=== PATIENT | female | born 1990 | race African-American/Black ===

== ENCOUNTER 2021-05-01 09:00 | Outpatient (RCR) | payer MEDICAID, SELFPAY ==
--- NOTE | 2021-05-01 09:05 | BH.SGPN.GN ---
Behaviors/Verbalizations/Mental Status: [] Eye contact is good. Motor activity is appropriate. Appearance is casual. Speech is Appropriate. Mood is anxious. Affect is congruent. Thoughts are linear and logical. No evidence of psychosis. Reviewed daily check in sheet and no reports of suicidal ideations or intent. Client Response/Progress/Benefit: [] Pt was an active participant in group discussion on empathy vs sympathy. Attentive. This was pt's first day in IOP. She shared with the group that she entered [facility] to become stable. She reports erratic moods and unhealthy coping skills. Her mental health has impacted her ability to keep a consistent job which has effected all aspects of her life. Group was supportive and offered some advice/suggestions for her first day/week in the IOP which was beneficial to pt. No progress noted as this was her first day. Will continue in IOP to maintain safety, increase healthy coping, and prevent decompensation. Narrative Note: []
--- NOTE | 2021-05-01 10:10 | BH.SGPN.GN ---
Behaviors/Verbalizations/Mental Status: [] Eye contact is good. Motor activity is appropriate. Appearance is neat. Speech is Appropriate. Mood is anxious. Affect is congruent. Thoughts are linear and logical. No evidence of psychosis. Client Response/Progress/Benefit: [] Pt participated at times during group discussion. Attentive during psychoeducation. Shared thoughts and insights along with peers on myths that are commonly associated with self-care. Common myths that group identified included self-care is .... selfish, lazy, takes to much time, has to be fun, is a privilege, is expensive, and is self-indulgent. Group worked together to attempt to bust these common myths about self-care. Pt along with her peers were able to identify barriers to self care such as; feeling to busy, prior commitments, urge to put others first, lack of finances, and feeling as if they don't deserve self-care. Pt and group were also able to identify the benefits to self-care which included; clarity, decreased stress, more energy, stability, increased self-esteem, having a purpose or something to look forward too. Benefited from group by increasing awareness of the benefits to self-care and challenging common myths that hinder one from utilizing self-care. Will continue in IOP to maintain safety, stablize mood, and increase healthy coping skills. Narrative Note: []
--- NOTE | 2021-05-01 11:03 | BH.SGPN.GN ---
Behaviors/Verbalizations/Mental Status: [] Client alert and oriented, neat and casually dressed and groomed. Eye contact good. Motor activity appropriate. Speech within normal limits. Affect congruent, mood anxious and depressed. Thoughts linear, logical, no signs of hallucinations or delusions. Client Response/Progress/Benefit: [] Client new to IOP tx on this date. She did well to remain an engaged participant AEB client taking notes during discussion, providing input, and listening attentively to peers. Attentive in group discussion on the various areas of self-care, benefits, and activities to improve self-care in each area. Client completed worksheet in which client identified current self-care practices and what self-care activities client wants to start using. Client reported she is currently excelling in area of spiritual self-care. Expressed wanting work on improving social self-care, noting she often isolates herself from her supports. Client shared she wants to begin by starting small and challenging herself to respond to text messages when others reach out to her. Appeared to benefit from reflecting on the area of self-care client can improve and setting a small goal. Will continue IOP tx to increase mood stability, maintain safety, and prevent decompensation. Narrative Note: []
--- NOTE | 2021-05-01 14:16 | BH.COMM_ITS ---
Communication Note - Communication with Client Communication Note: Met with pt to complete initial paperwork. Only significant change since pre-admission screening is that she reports experiencing fleeting thoughts of overdosing on allergy medication Tuesday; however, reports this was momentary and that she was able to control the thoughts. Pt notes her sister has all medications and client feels able to maintain safety at this time. Denies any suicidal ideation since Tuesday, denies any current plan or intent. Reports her children as protective factors. Has been taking Latuda and lithium for past week and a half. Completed [place] [facility] with moderate risk. Future-oriented.
--- NOTE | 2021-05-04 08:57 | BH.SGPN.GN ---
Behaviors/Verbalizations/Mental Status: []Eye contact is good. Motor activity is appropriate. Appearance is neat, grooming well tended to. Speech is Appropriate. Mood is depressed, anxious, irritable. Affect is congruent. Thoughts are linear and logical. No evidence of psychosis. Reviewed daily check in sheet and client reports of suicidal ideations as a 4/5 which is increased from reported scores last week. Reports intent as a 2/5. Client will meet with a therapist individually for further assessment of risk. Client Response/Progress/Benefit: [] Pt was an attentive participant AEB actively listening, providing supportive feedback, as well as willingness to process with group. Client reports emotion for the day as ?conflicted? and indicates this is related to minimal changes in her mental health status. Reports that she has been going out of her way to practice self-care such as hanging out with supports and not isolating, caring for her body through exercise and getting her nails done, as well as spent time painting. Identified these as mental health wins, but went on to indicate struggling to see significant improvements in her overall mood and noted feeling as though she is putting effort into using healthy skills with little to no success. Notes this as frustrating and discouraging. Receptive of supportive feedback provided by group and indicates understanding that improving her overall mental health is a process but shared struggling to remain patient in doing so. Benefited from group support, encouragement, and feedback. Will continue in IOP to maintain safety, further promote healthy coping behaviors, and prevent decompensation. Narrative Note: []
--- NOTE | 2021-05-04 10:10 | BH.SGPN.GN ---
Behaviors/Verbalizations/Mental Status: [] Eye contact is good. Motor activity is appropriate. Appearance is neat. Speech is Appropriate. Mood is anxious. Affect is congruent. Thoughts are linear and logical. No evidence of psychosis. Client Response/Progress/Benefit: [] Pt was an active participant in group discussion and activity. Attentive during psychoeducation. Participated and provided insight along with peers on obstacles or potholes that hinder our ability to communicate in stressful situations. Group identified the following obstacles; impulsivity (reacting to fast to comments and situations), mental health struggles, physical health struggles (headaches, pain, poor sleep), toxic or unhealthy relationship patterns, work/responsibilities (feeling overwhelmed), lack of proper self-care on our part, and negative thinking patterns (mind-reading, catastrophizing). Pt provided insight on how emotion and mood can impact effective communication. Pt struggles at times with communicating her needs effectively in the experiential activity and was visibly stressed. Benefited from increased awareness on how our emotions impact our communication. Will continue in IOP to maintain safety, increase healthy coping skills, prevent decompensation. Narrative Note: []
--- NOTE | 2021-05-04 11:10 | BH.SGPN.GN ---
Behaviors/Verbalizations/Mental Status: []Client alert and oriented, casually dressed and groomed. Eye contact good. Motor activity appropriate. Speech within normal limits. Affect constricted, mood depressed. Thoughts linear, logical, no signs of hallucinations or delusions. Client Response/Progress/Benefit: []Client engaged in session AEB client listening attentively to peers and providing input. Attentive during psychoeducation on 4 zones of regulation. Client able to identify feelings and behaviors for each zone. Client identified coping skills one can use to support self in each zone which included: opposite action, exercise, journaling, reaching out to support, and grounding skills. Client stated belief that she is in ?a mixed state? this morning of ?blue, green, and yellow.? Client shared she has been struggling with mood instability over the past few weeks. Client stated she plans to take a nap and banquet prep cook tonight to improve mood. Benefited from increased education on zones of regulation or stages of alertness for emotions and healthy coping skills to use for each zone. Will continue IOP tx to prevent decompensation, maintain safety, and improve functioning. Narrative Note: []
--- NOTE | 2021-05-04 14:03 | BH.MDN ---
Multi-Disciplinary Note - Note 30-min Individual Time Started:: 12:10 Date: 05/04/21 Purpose of session/treatment goals addressed:: The purpose of this session was to gather information on client's current stressors, symptoms, and treatment goals. Another goal was to build rapport assess risk. Eye Contact:: Good Motor Activity:: Appropriate Appearance:: Neat Speech:: Appropriate Mood:: Dysthymic Affect:: Congruent - tearful Thoughts:: Linear, Logical, No evidence of hallucinations/delusions noted Staff Interventions:: Therapist used active listening and open-ended questions to explore client's current stressors, symptoms, history, and treatment goals. Therapist used strengths perspective to build rapport and combat distorted thought patterns. Therapist explored client's daily symptom tracker scores and assessed risk. Client Response:: Client responded well to session, open to meeting with therapist. Client reports enjoying group so far, but she is also frustrated. Client shared feeling frustrated because I have a lot of skills and I try really hard, but I'm not better. Client was recently diagnosed with Bipolar Disorder and client shared she is still trying to figure out what the diagnosis means. Client became tearful while sharing her worries about how her mental health will impact her children. Client also tearful about how her mental health has impacted client's ability to form healthy relationships and keep jobs. Client receptive to emotional support from therapist and gentle thought challenging. Client receptive to learning more about her diagnosis and tracking her moods. Client shared one barrier she often runs into is not giving things a far chance. Client stated she will often put a lot of effort into her mental health when she is feeling more energetic and positive, but then when depression hits client gives up on it. Client reports wanting to overcome this and was receptive to [facility] staff helping to hold client accountable. Client endorses some fleeting suicidal ideations today, but denies any plan or intent. Client admits to having more Benadryl at home that was recently given to client by a doctor and client texted her sister to remove it. Client's sister has all of client's other medications and checks-in with client daily. Client will attend [facility] tx tomorrow. Risks/Concerns:: Client reports having fleeting thoughts about suicide not because I want to kill myself, but because I just want a break. Client reports ability to maintain safety today and denies any plan or intent. Client's sister has client's medications and client will give sister her allergy medication today as well. Client's children are her protective factor and client is future oriented. Progress Toward Goals/Plan:: Client's second day of IOP tx. Client reports she enjoys the topics so far and looks forward to meeting with the psychiatrist. Client shared she has been experiencing erratic moods over the past few weeks. Client has poor sleep, fleeting suicidal ideations, mood cycling, and irritability. Client recently diagnosed with Bipolar disorder and client shared she is still trying to figure out what this means. Client's goals are to reinforce healthy coping skills, find medications that work, increase awareness of mood and symptoms, and follow through with goals. Client will continue IOP tx to prevent further decompensation, manage medications, and maintain safety. Time Stopped:: 12:30
--- NOTE | 2021-05-05 09:00 | BH.SGPN.GN ---
Behaviors/Verbalizations/Mental Status: [] Eye contact is good. Motor activity is appropriate. Appearance is neat. Speech is Appropriate. Mood is depressed. Affect is flat. Thoughts are linear and logical. No evidence of psychosis. Reviewed daily check in sheet and pt reports 3/5 for suicidal thoughts and 2/5 for intent. This is reduced from yesterday and close to baseline for patient. Client Response/Progress/Benefit: [] Pt participated when prompted. Attentive. Daily symptom tracker notes 4/5 for depression (improved from yesterday) and 4/5 for irritability. Emotion for today is not bad but not good. Mental health wins included making dinner yesterday. States that this was big win as she hasn't done this in awhile. Accomplishing more tasks. More motivated. Short check-in today. Progress noted per pt report. Benefited from group support, encouragement, and feedback. Will continue in IOP to maintain safety, increase healthy coping, and prevent decompensation. Narrative Note: []
--- NOTE | 2021-05-05 10:08 | BH.SGPN.GN ---
Behaviors/Verbalizations/Mental Status: []Client alert and oriented, neatly dressed and groomed. Eye contact good. Motor activity appropriate. Speech within normal limits. Affect flat, mood dysthymic. Thoughts linear, logical, no signs of hallucinations or delusions. Client Response/Progress/Benefit: []Client responded well to session, attentive and taking notes. Group discussed potential barriers to communication including: yelling, shutting down, passive-aggressive behaviors, and mind-reading. Helped group identified positives of having effective communication skills. Attentive during psychoeducation on the four communication styles. Client chose not to share her communication style with the group, but client was taking notes. Seemed to benefit from increased awareness of the different communication styles and identify personal communication style. Client to continue in IOP tx to prevent decompensation, manage medications, and maintain safety. Narrative Note: []
--- NOTE | 2021-05-05 11:08 | BH.SGPN.GN ---
Behaviors/Verbalizations/Mental Status: []Client alert and oriented, casually dressed and appropriately groomed. Eye contact poor. Motor activity appropriate. Speech WNL. Affect constricted, mood depressed and anxious. Thoughts linear, logical, no signs of hallucinations or delusions. Client Response/Progress/Benefit: []Client responded well to session AEB client listening attentively to others and providing input during group discussion on the pay offs and costs of the different communication styles. Attentive during psychoeducation on interpersonal DBT skill TEZ and client selected a communication skill to practice. Client chose not to share what skill she wants to work on. Progress could be hindered if client continues to stay passive in group discussions. Will continue IOP tx to stabilize moods, increase healthy coping skills and prevent decompensation.
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
--- NOTE | 2021-05-06 10:36 | BH.COMM_ITS ---
Communication Note - Communication with Client Communication Note: Discussed liquid [place] with Dr. Tobar. Called [facility] pharmacy and discussed medication. Pharmacist states no dose of liquid [place] is available at their pharmacy. Discussed this with Dr. Tobar. New order received from Dr. Tobar for client to continue taking the [place] capsules the way she currently is (300mg in the AM, 600mg in the PM) and to start to wean her Latuda. Client is to take 1/2 tablet of [place] daily for one week, and then stop medication. New order recieved for Saphris 5mg SL twice daily for client. Client is to get her labs done as previously ordered by Dr. Tobar. This nurse called client at this time to rely information about medication changes, weaning Latuda, order for Saphris and to continue [place]. Client voices understanding.
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
--- NOTE | 2021-05-06 13:29 | BH.DR.ITP ---
Initial Treatment Plan Patient Information Visit Information: ADMISSION DATE: EXPECTED LOS: 4-6 weeks Problems/Symptoms Problem #1:: Mood instability Symptom:: Sadness, irritability, anger, hopelessness, worthlessness, anhedonia, sleep disruption, decreased concentration, racing thoughts, suicidal ideation, impulsivity, history of reckless behavior
--- NOTE | 2021-05-06 15:33 | BH.MTP_ITS ---
Master Treatment Plan - Patient Information Program Physician:: Dr. Caridad Ga Primary Therapist:: Violeta LEE - Psychiatric Diagnoses Psychiatric Diagnoses:: Bipolar 1 disorder, most recent episode mixed, severe without psychosis F 31.63; History of PTSD; History of alcohol use disorder (sober since February 2021); Cluster B traits: Strong Diagnosis Code(s):: F 31.63 - Estimated LOS Estimated LOS (in weeks):: 6 Problem/Goal #1 - Problem/Goal #1 Stated Goal:: Client will increase mood stability, reduce depression, and reduce suicidal thoughts due to Bipolar disorder through the Intensive Outpatient Program. Description of Barriers: Client reports history of lack of follow through and shared I don't always give things a fair chance. Client is a single mother of three children, so she does not get a lot of self-care time. Client endorses poor distress tolerance skills and struggles with regulating her emotions which leads to suicidal ideations and impulsive behaviors. Functional Impact: Client is a 31 year-old female with a history of bipolar disorder and PTSD. Client was self-referred to [facility] due to erratic moods over the past several months. Client currently endorses a depressed mood, but client shares her moods change many times throughout the day. Client's last manic episode was last year which included client being hypersexual, drinking, and impulsively spending money. Client currently endorses lack of energy, increased irritability, insomnia, hopelessness, and worthlessness. Client reports chronic suicidal ideations, but denies any active SI. Client's symptoms continues to interfere with her functioning as well as her ability to form relationships and work. Client also fears that her symptoms are impacting her children. Goal Relevant Strengths/Supports: Client is intelligent and has knowledge of many different coping skills. Client is connecting with outpatient counseling and psychiatry. Client's sister is her primary support. - Objectives Objective #1 Stated Objective: Client will learn and utilize 2-3 healthy coping strategies to better manage depressive and mood symptoms as shown by reduced DSM-5 scores. Interventions: Through group and individual sessions, therapist will help client identify triggers and warning signs of depression and emotional dysregulation including emotional, physical, and behavioral changes. Therapist will teach client various coping skills to manage her symptoms and give client tangible resources to use to regulate emotions. Therapist will use cognitive restructuring techniques and help client gain awareness of negative thoughts that reinforce depressive cycles. Therapist will help client incorporate behavioral activation and assist client in setting SMART goals. Discharge Criteria: Client will have met this goal when she can report learning and using at least 2 coping skills to manage depressive symptoms and show a reduction in DSM-5 symptoms. Target Date: 06/12/21 Review Date: 05/29/21 Status: open Objective #2 Stated Objective: Client will identify at least 2-3 negative self-talk messages used to reinforce depression and replace thoughts with positive, realistic messages. Interventions: Therapist will help client identify distorted, negative beliefs about self and replace with more realistic, affirmative messages. Therapist will use CBT and DBT to help client increase insight to the connection between thoughts, emotions, and behaviors. Therapist will encourage client to practice thought challenging and self-compassion. Discharge Criteria: Client will have achieved this goal when can verbalize at least 2 negative self-talk messages and effectively replace those thoughts with affirmative messages. Target Date: 06/12/21 Review Date: 05/29/21 Status: open Problem/Goal #2 - Problem/Goal #2 Stated Goal:: Client will reduce irritability symptoms and impulsivity to improve daily functioning. Description of Barriers: Client reports history of lack of follow through and shared I don't always give things a fair chance. Client is a single mother of three children, so she does not get a lot of self-care time. Client endorses poor distress tolerance skills and struggles with regulating her emotions which leads to suicidal ideations and impulsive behaviors. Functional Impact: Client is a 31 year-old female with a history of bipolar disorder and PTSD. Client was self-referred to [facility] due to erratic moods over the past several months. Client currently endorses a depressed mood, but client shares her moods change many times throughout the day. Client's last manic episode was last year which included client being hypersexual, drinking, and impulsively spending money. Client currently endorses lack of energy, increased irritability, insomnia, hopelessness, and worthlessness. Client reports chronic suicidal ideations, but denies any active SI. Client's symptoms continues to interfere with her functioning as well as her ability to form relationships and work. Client also fears that her symptoms are impacting her children. Goal Relevant Strengths/Supports: Client is intelligent and has knowledge of many different coping skills. Client is connecting with outpatient counseling and psychiatry. Client's sister is her primary support. - Objectives Objective #1 Stated Objective: Client will identify 2-3 irritability triggers and 2 coping skills to use when feeling irritable to manage anger as shown by decreasing her DSM-5 scores for irritability and anger. Interventions: Therapist will provide education on bipolar disorder and maintenance cycles. Therapist will help client explore personal symptoms and warning signs of bipolar disorder. Therapist will teach client coping skills to improve emotional regulation, mindfulness, and distress tolerance to help client cope with mood changes in the moment. Discharge Criteria: Client will have accomplished this goal when she can identify at least 2 triggers and report using 2 coping skills to manage anger and irritability. Additionally, client will have accomplished this goal when her DSM-5 scores show a reducion for anger. Target Date: 06/12/21 Review Date: 05/29/21 Status: open Objective #2 Stated Objective: Client will be able to report daily medication compliance with in IOP tx. Interventions: Therapist will help client explore the pros and cons of taking medications to improve her mood symptoms. Therapist will advocate for client to reduce medication barriers and provide encouragement when needed. Discharge Criteria: Client will have accomplished this goal when she can report daily medication compliance for the next 4-6 weeks. Target Date: 06/12/21 Review Date: 05/29/21 Status: open
--- NOTE | 2021-05-07 08:55 | BH.SGPN.GN ---
Behaviors/Verbalizations/Mental Status: []Eye contact is avoidant. Motor activity is appropriate. Appearance is neat. Speech is Appropriate, limited input. Mood is depressed and agitated. Affect is constricted. Thoughts are linear and logical. No evidence of psychosis. Reviewed daily check in sheet and client reports suicidal ideations as 5/5 with intent as 4/5. Willing to meet individually for a more complete risk assessment and to complete safety planning. Client Response/Progress/Benefit: []Pt was an attentive participant AEB actively listening as well as nodding while fellow participants shared with the group. Client did not provide any input throughout and declined to process with the group. Appeared to be agitated and often avoiding eye contact throughout discussion. Client agreeable to meeting with individual therapist to discuss and process stressors impacting mood stability and ability to engage. Narrative Note: []
--- NOTE | 2021-05-07 11:10 | BH.SGPN.GN ---
Behaviors/Verbalizations/Mental Status: []Client alert and oriented, casually dressed and groomed. Eye contact fair. Motor activity appropriate. Speech within normal limits. Affect congruent. Mood anxious. Thoughts linear, logical, no signs of hallucinations or delusions. Client Response/Progress/Benefit: []Client engaged during activity and provided ideas on how to cope with internal barriers that keep clients stuck from moving towards goals. Client able to identify barriers to desired reality. Identified barriers to current reality to include: fear, worthlessness, shame, guilt, and anger. Client stated she wants to practice skill of opposite action to help overcome her barriers. Benefited from group by identifying obstacles and solutions to desired reality. Will continue IOP tx to prevent decompensation, stabilize moods and increase healthy coping skills. Narrative Note: []
--- NOTE | 2021-05-07 15:54 | BH.COMM ---
Communication Note - Communication with Client Communication Note: Called client's emergency contact to share client's current emotional state, SI, and safety plan made during session. Will call emergency contact later this afternoon to follow up on client.
--- NOTE | 2021-05-07 15:55 | BH.COMM ---
Communication Note - Communication with Client Communication Note: Spoke with client's emergency contact (sister). Sister reports client is doing better this afternoon. Sister went to client's house and spent time with client. Client is not a risk to herself or others at this time. Client denies any active suicidal ideations, plan, or intent.
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
--- NOTE | 2021-05-08 13:29 | BH.COMM ---
Communication Note - Communication with Client Communication Note: Spoke with client and got verbal consent to schedule an intake appointment for client at [facility]. Client wants to begin parenting classes at [facility] and has an intake on 05/21/21.
--- NOTE | 2021-05-28 09:00 | BH.SGPN.GN ---
Behaviors/Verbalizations/Mental Status: [] Eye contact is good. Motor activity is appropriate. Appearance is casual. Speech is Appropriate. Mood is depressed. Affect is flat. Thoughts are linear and logical. Reviewed daily check in sheet and pt reports 1/5 for suicidal ideations and 1/5 for intent. This is baseline for patient. Client Response/Progress/Benefit: [] Pt spoke only when prompted. Attentive. Emotion for today is tired. Daily symptom tracker notes 3/5 for depression and anger. Pt shared that she did not attend IOP yesterday due to her children's bus not showing up on time. This led to her having to transport her children to school. Reports that she was irritable all day due to this inconvenience. Notes poor sleep and feeling tired this AM. Also reports motivation being low. Able to identify some mental health wins. No progress noted per pt report. Benefited from group support and encouragement. Will continue in IOP to maintain safety, prevent decompensation, and to increase healthy coping skills. Narrative Note: []
== END 2021-05-09 23:59 ==
LOC: BHIOP 09:00
PROVIDERS: Referring Provider Psychiatry & Neurology Psychiatry; Visit Provider Psychiatry & Neurology Psychiatry
DX: F31.63 Bipolar disorder, current episode mixed, severe, without psychotic features (principal); F43.10 Post-traumatic stress disorder, unspecified; R45.851 Suicidal ideations; Z79.899 Other long term (current) drug therapy; Z91.5 Personal history of self-harm; I10 Essential (primary) hypertension; Z81.8 Family history of other mental and behavioral disorders; Z81.3 Family history of other psychoactive substance abuse and dependence
CPT/HCPCS: 90792; H2012; H2020; S9480; 90832; 90837

== ENCOUNTER 2021-05-11 07:50 | Outpatient (RCR) | payer MEDICAID, SELFPAY ==
--- NOTE | 2021-05-11 09:00 | BH.SGPN.GN ---
Behaviors/Verbalizations/Mental Status: [] Eye contact is good. Motor activity is appropriate. Appearance is neat and casual. Speech is Appropriate. Mood is depressed and agitated. Affect is congruent. Thoughts are linear and logical. No evidence of psychosis. Reviewed daily check in sheet and client reports suicidal ideations as a 3 and intent as 2 which is consistent with baseline, denies any immediate plan, or intent. Will meet with individual counselor for further assessment. Client Response/Progress/Benefit: []Pt was an attentive participant AEB actively listening, as well as willingness to process with group. Client reports emotion for the day as ?hopeless? noting this is due to struggling with medication side effects which has been an ongoing issue. Expressed wanting to stop taking her medications today as a result but is willing to continue to take them as prescribed until she can meet with program psychiatrist this Tuesday. Reports she is also struggling with only seeing the negatives despite knowing she has some positives in her life. Identified finances as an additional stressor. Pt responded well to supportive feedback and encouragement provided by the group. Able to identify current mental health wins which included attending anabaptism which she noted is a positive support, as well as spending time with her children and painting despite not feeling the motivation to do much. Benefited from group support, encouragement, and feedback. Will continue in IOP to further improve mood stability, continue to promote healthy coping behaviors, maintain safety and prevent decompensation. Narrative Note: []
--- NOTE | 2021-05-11 10:05 | BH.SGPN.GN ---
Behaviors/Verbalizations/Mental Status: []Client alert and oriented, neatly dressed and groomed. Eye contact good. Motor activity WNL. Speech within normal limits. Affect congruent, mood depressed. Thoughts linear, logical, no signs of hallucinations or delusions. Client Response/Progress/Benefit: []Client responded well to session, attentive and taking notes as well as engaged throughout discussion and activity. Agreed with session quote and shared connecting with client?s examples of how fear of failure can negatively impact mental health. The group discussed how mindset and one?s reaction to setbacks determines progress. Client shared past disappointments and fear of vulnerability has reinforced fear of failure in the past. Client appeared to benefit from gaining awareness of the impact fear of failure can have on one?s mental health and wellbeing. Progress noted as client continues to improve engagement in group setting, gain insight and coping skills which have improved overall ability to manage emotions and reports reduction in suicidal ideations as a result. Continues to struggle with significant depression and will continue IOP to reduce symptoms, combat distortions, promote healthy emotion regulation, and improve daily functioning. Narrative Note: []
--- NOTE | 2021-05-11 11:10 | BH.SGPN.GN ---
Behaviors/Verbalizations/Mental Status: []Client alert and oriented, neatly dressed and groomed. Eye contact good. Motor activity appropriate. Speech within normal limits. Affect constricted, mood depressed. Thoughts linear, logical, no signs of hallucinations or delusions. Client Response/Progress/Benefit: []Client responded well to session, engaged during activity and discussion. Client completed the fear of failure worksheet and reported that fear of failure has kept client from networking, going to school, making friends, and relationships. Client able to identify thoughts and behaviors that reinforce personal fear of failure which included: isolation, negative self-talk, self-sabotage, anger, and fear of rejection. Client attentive during discussion of the different strategies to help overcome fear of failure. Identified wanting to work on creating a gratitude journal to overcome fear of failure. Appeared to benefit from identifying strategies with peers. Will continue IOP tx to prevent decompensation, improve emotional regulation skills, and monitor medication changes. Narrative Note: []
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
--- NOTE | 2021-05-13 09:02 | BH.SGPN.GN ---
Behaviors/Verbalizations/Mental Status: []Client alert and oriented, casually dressed and groomed. Eye contact fair to good. Motor activity appropriate. Speech within normal limits. Affect constricted, mood dysthymic. Thoughts linear, logical, no signs of hallucinations or delusions. Reviewed client?s symptom tracker and risk for suicidal ideation noted as a 2/5, denies plan, or ntent as of 05/13/21. This is lower than prior baseline. 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 Client reports feeling chill this morning, but client also feels somewhat concerned about this as she has several stressors she feels should be impacting her more. Noted concerns about medication contributing to her feeling calmer and is under if she is overmedicated or if this is what a healthy baseline looks like. Discussed struggling to know her warning signs and triggers as she is new to learning about her bipolar diagnosis. Peers offered encouragement and strategies to help with increasing personal awareness. Client was also encouraged to review the handout she has on common warning signs/triggers for mood cycling. Client's positives today included getting to IOP despite having car troubles and continuing to take medications despite frustration with them. Progress noted in reduced SI, but client continues to struggle with low insight to triggers and applying emotion regulation skills consistently. Will continue IOP tx to prevent decompensation, maintain safety, and improve overall functioning. Narrative Note: []
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
[2021-05-13 10:58] VITALS: BP 137/88; PULSE 76
--- NOTE | 2021-05-13 11:15 | BH.SGPN.GN ---
Behaviors/Verbalizations/Mental Status: []Client alert and oriented, neatly dressed and appropriately groomed. Eye contact good. Motor activity appropriate. Speech within normal limits. Affect constricted, mood agitated. Thoughts linear, logical, no signs of hallucinations or delusions. Client Response/Progress/Benefit: []Client responded well to session, taking notes and participating in worksheet discussion. Client set a goal to gain control over reducing irritability and anger. Client wants to be able to work on this by using her R.E.S.T technique that is hanging up on her fridge. Client stated to help accomplish this goal client will seek support from her therapist and sister as well as her DBT skills workbook. Appeared to benefit from identifying a small goal to benefit mental health. Progress noted in client?s self-report of an improved mood today. Will continue IOP tx to monitor medication changes, increase emotional regulation skills, and increase distress tolerance. Narrative Note: []
--- NOTE | 2021-05-13 12:13 | PCM.BH.PN ---
Progress Note Progress Note: History of Present Illness/Interim History: The patient is a -[place] female with a history of bipolar 1 disorder 31-year-old who is seen in follow-up at the [facility] behavioral health IOP program. I last saw the patient 1 week ago for her initial visit. At that time the patient wished to take all of her medicine in liquid form. Attempt was made to do this but the liquid lithium carbonate was not available at any pharmacies. The patient states that the lithium 1200 mg total daily which she opens the Sprinkles and Yogurt Is Making Her Feel Fatigued and Causing Her to Have Increased Nighttime Urination Which She Is Not Willing to Put up with. She Is Unable to Take an Extended Release [place] Because She Has To Pour out the Capsules. States That She Is Not Going to Stay on [place] Due To the Side Effects. The Patient Has Been Tolerating Her Asenapine 5 Mg Sublingual Twice a Day Only by Taking All of It at Bedtime. The Patient States That When She Was Taking the Asenapine Too Tired during the Day. On Her Own She Started Taking It 10 Mg Twice a Day Sublingual at Bedtime and Feels That This Is Working for Her. Her Sleep Is Improved to 8 Hours a Night and She Feels That Her Mood Has Also She Had Some Suicidal Ideation Last Week Improved in the Last Few Days. Which She Feels Was Triggered by Her Slapping Her 3-year-old for Getting on Her Nerves. Her and Her Counselor Called Child Protective Services and Spoke with Them and They [place] That the Children Were Not in Harm's Way. The Patient Has Not Had Any Suicidal Ideation in the Last Few Days and Feels She Is Managing Her Anger Better but Is Looking Forward to Taking a Parenting Class. The Patient Denies Any Hopelessness or Worthlessness or Guilt in the past Few Days. No Thoughts of Self-Harm. She Is Still Stressed by Having Problems with Her Car but Feels She Is Learning Good Skills in the Program. She Also Denies Plan for Suicide, Active Suicidal Ideation, Homicidal Ideation, Hallucinations or Delusions. She Feels That the Saphris Is Benefiting Her Mood and She Has Also Not Been Napping during the Day. Meds: Latuda Was Discontinued Yesterday after Weaning It. Asenapine 10 Mg Sublingual Nightly (X4 Days Now); [place] Carbonate 600 Mg P.O. Twice a Day by Sprinkling the Capsule in Yogurt. : [] Mental status exam: The patient is a 31-year-old -[place] female who appears normal for stated age and is well groomed with good hygiene. She has no psychomotor agitation or retardation. Eye contact is good and speech is normal rate and rhythm and fluent with no pressure. Mood is mildly depressed. Thought process is organiz Thought content:ed and goal-directed. Affect is full and normal. There remains evidence of suicidal ideation last week but for the past few days there is no evidence of suicidal ideation. There is no evidence of a plan for suicide, homicidal ideation, hallucinations, delusions or symptoms of bryan. Reality testing is intact. Judgment is intact. Insight is fair. Impulsivity is moderate to high. Diagnose 1. Bipolar 1 disorder, most recent episode mixed, severe without psychosis ; History of PTSD, alcohol use disorder.; Strong cluster B traits; primary support, work and financial issues. The patient will continue the IOP program at [facility] as the structure, support, educati, and group therapy She felt safe during the interview and if it anytime she does not feel safe she will let us know or go to the emergency room. will hopefully prevent worsening of the patient's symptoms which might require hospitalization. The risks, options, possible complications and side effects of the medications were discussed with the patient and she understands and accepts these. The patient agrees to stay on the lithium at least until she has taken the asenapine for 2 weeks. She insists that she will not stay on the lithium due to side effects. at the current dose She agrees to continue the lithium for 10 days. Then she will decrease the lithium to just the morning dose and then discontinue that in 1 week (May 30, 2021). She agrees to stay on the asenapine 10 mg sublingual nightly as she is unable to tolerate taking it twice a day. The patient understands that we are quite restricted in terms of medication since she refuses to take anything that is not a liquid or sublingual. She understands that there is a risk of bryan if she stops the medication on her own or does not wean it. She understands that she may have to go back on some type of mood stabilizer if asenapine alone does not control her moods over the next few months. She will continue to follow-up with outpatient providers and I will see the patient in follow-up in 1 week.o Plan: [] Laboratory: Th normal and the lithium level was therapeutic at 0 pointe patient's labs were discussed with her and the renal panel0.7 mmol/L. Her vitamin D was in the normal range and her TSH was normal also.
--- NOTE | 2021-05-14 09:00 | BH.SGPN.GN ---
Behaviors/Verbalizations/Mental Status: []Eye contact is good. Motor activity is appropriate. Appearance is neat. Speech is Appropriate. Mood is calm. Affect is flat. Thoughts are linear and logical. No evidence of psychosis. Reviewed daily check in sheet and pt reports 2/5 for suicidal thoughts and 1/5 for intent which is below pt's baseline. Client Response/Progress/Benefit: []Client responded well to session, receptive to feedback from peers. Client reports feeling chill this morning which is both welcomed and making client concerned. Client stated I'm not this chill of a person, so it's confusing. Client received support from peers helping client challenge jumping to conclusions and encouraging client to be aware of potential warning signs. Client shared she has been practicing giving myself katia as well as spending time with her daughter doing a craft. Client reports medication compliance. Client's biggest stressors right now are money and car issues. Appeared to benefit from feedback from peers and encouragement. Progress noted in client's reduced SI compared to earlier this week. Will continue IOP tx to prevent decompensation, improve overall functioning, and monitor mood. Narrative Note: []
--- NOTE | 2021-05-14 10:00 | BH.SGPN.GN ---
Behaviors/Verbalizations/Mental Status: [] Eye contact is good. Motor activity is appropriate. Appearance is casual. Speech is Appropriate. Mood is depressed. Affect is flat. Thoughts are linear and logical. No evidence of psychosis. Client Response/Progress/Benefit: [] Pt was an active participant in group discussion. Attentive during psychoeducation on the impact of anxiety, benefits of anxiety, and the different anxiety disorders. Pt asked questions and was engaged during discussion on types of anxiety disorders (OCD, PTSD, Panic D/O, Agoraphobia, INDIO, Acute Stress Disorder, and Phobias). Group worked together to identify a list of common signs of anxiety which included; feeling tense, shakiness, sweating, tight chest, upset stomach, feeling flush, SOB, increased heart rate, headache, numbness, etc). Group was primarily psychoeducational in nature and pt was attentive, engaged, and provided insight at times. Benefited from increased awareness of different types of anxiety disorders as well as benefits and importance of identifying physiological signs of anxiety. Will continue in IOP to maintain safety, stabilize mood, and increase healthy coing skills. Narrative Note: []
--- NOTE | 2021-05-14 11:05 | BH.SGPN.GN ---
Behaviors/Verbalizations/Mental Status: []Client alert and oriented, casually dressed and groomed. Eye contact fair. Motor activity appropriate. Speech within normal limits. Affect constricted, mood dysthymic. Thoughts linear, logical, no signs of hallucinations or delusions. Client Response/Progress/Benefit: []Client was a passive participant AEB limited contributions during discussion, however did listen attentively to peers. Reviewed safety behaviors she engages in that reinforce anxiety. Attentive during psychoeducation on mindfulness coping skills and their impact on mental health wellness. Worked with group to identify healthy coping strategies to manage anxious symptoms. Client stated she is willing to practice yoga and getting a massage. Appeared to benefit from learning healthy skills to help manage anxiety. Pt to continue IOP to stabilize moods, increase healthy coping and prevent decompensation. Narrative Note: []
--- NOTE | 2021-05-19 11:05 | BH.SGPN.GN ---
Behaviors/Verbalizations/Mental Status: []Eye contact is good. Alert and oriented. Motor activity is appropriate. Appearance is casual. grooming is appropriate. Speech is Appropriate. Mood is dysthymic. Affect is constricted. Thoughts are linear and logical. No evidence of psychosis or hallucinations. Client Response/Progress/Benefit: []Client was engaged during discussion, did well to complete activity and process with the group. Client was willing to complete the worksheet in which she was challenged to develop a personal SMART goal. Client chose the goal to reach out weekly to a support person and spend quality time with kids on daily basis. Client identified her barriers which included: don't feel like it and no motivation. Client receptive to identifying solutions for these barriers and willing to begin working on this goal. Benefited from this group by developing a short-term SMART goal related to mental health. Will continue IOP tx to stabilize moods, increase consistent application of skills and prevent decompensation. Narrative Note: []
--- NOTE | 2021-05-20 09:00 | BH.SGPN.GN ---
Behaviors/Verbalizations/Mental Status: []Client alert and oriented, neatly dressed and groomed. Eye contact fair. Motor activity appropriate. Speech within normal limits. Affect constricted, mood irritable. Thoughts linear, logical, no signs of hallucinations or delusions. Reviewed client?s symptom tracker, client's scores for suicidal ideation were below her baseline. No risk for suicide as of 05/20/21 Client Response/Progress/Benefit: []Client responded mostly well to session, quiet unless sharing. Client reports feeling in between happy and sad this morning. Client shared she has stopped taking her medications and shared I'm just over trying meds and the side effects. Client self-reports on her symptom tracker that her mood has been overall the same and so has her functioning. Client also scored herself moderate (3/5) for irritability and depression. Therapist will meet with client later to discuss medication. Client stated she used opposite action this weekend and went on a mindfulness walk. Benefitted from discussion on utilizing healthy coping skills to manage mood symptoms. Will continue IOP tx to prevent decompensation and monitor mood. Narrative Note: []
--- NOTE | 2021-05-20 11:05 | BH.SGPN.GN ---
Behaviors/Verbalizations/Mental Status: []Eye contact is fair. Alert and oriented. Motor activity is appropriate. Appearance is casual. grooming is appropriate. Speech is Appropriate. Mood is anxious. Affect is constricted. Thoughts are linear and logical. No evidence of psychosis or hallucinations. Client Response/Progress/Benefit: []Client was engaged during discussion, did well to complete activity and process with the group. Client was willing to complete the worksheet in which was challenged to develop a personal SMART goal. Client was able to create a short term goal that was mental health focused and would help her with consistent use of skills. Client worked on identifying potential barriers that could prevent her from accomplishing identified goal. Accepted feedback and support from others when identifying potential solutions to the barriers. Benefited from this group by developing a short-term SMART goal related to mental health. Will continue IOP tx to increase use of healthy coping skills, increase confidence and prevent decompensation.
--- NOTE | 2021-05-20 11:46 | BH.COMM ---
Communication Note - Communication with Client Communication Note: Client reports that she has stopped taking her medications two days ago and wishes to not continue with medication trials in the future. Client declined to see IOP psychiatrist today. Client denies any suicidal or homicidal ideations, plan, or intent today and does not appear as an imminent threat to herself or others. Therapist provided education on the risks/concerns of decompensation and mood instability that may result off of medications. Therapist will inform IOP staff in the treatment team meeting today.
--- NOTE | 2021-05-20 11:51 | BH.MDN_ITS ---
Multi-Disciplinary Note - Note 60-min Individual Time Started:: 10:25 Date: 05/20/21 Purpose of session/treatment goals addressed:: To address goal #2 objective #2 as well as goal #1 objective #1 of client's tx plan. Eye Contact:: Good Motor Activity:: Appropriate Appearance:: Neat Speech:: Appropriate Mood:: Other - agitated Affect:: Constricted Thoughts:: Other - poor insight, No evidence of hallucinations/delusions noted Staff Interventions:: Therapist explored client's reasoning for quitting her medications. Therapist offered support while also helping client see the potential consequences of stopping and the benefits client had been experiencing on the medication. Therapist used an exercise from the bipolar workbook and assisted client in identifying what would make depression and bryan worse. Therapist also helped client identify what client can do to avoid unhealthy skills or activities that make symptoms worse. Therapist discussed the importance of sleep hygiene, stress management, avoiding caffeine, and diet and exercise. Therapist gave client a habit tracker Client Response:: Client open to meeting with therapist and discussing the risks and concerns of stopping medication. Client acknowledges that her mood and sleep improved on Asenapine and that her suicidal ideations decreased. However, client stated she does not plan to continue taking Asenapine due to fear of weight gain and feeling too tired when exercising. Client also acknowledges the potential consequences of discontinuing her medication, but client reports belief that she will be able to control her bipolar symptoms using a holistic approach. Client also wants to find a holistic psychiatrist to help treat her bipolar symptoms. Discussed things client can control such as diet, exercise, stress management skills, sleep hygiene, and avoiding substances. Client learned about caffeine impacts bryan and was willing to reduce caffeine intake. Client and therapist identified things that make bryan and depression worse. Also created strategies to avoid these things and cope in the moment. Client created a plan to cope with isolation, negative self-talk, impulsivity with spending, and diet. Client has an intake tomorrow at [facility] to start parenting classes. Risks/Concerns:: Client denies any suicidal or homicidal ideations, plan, or intent as of 05/20/21. Client is future oriented and stated she has not been suicidal for days. Client has decided to stop taking her medications and there is a risk of decompensation, mood instability, and increased impulsivity and irritability without her medications. All these concerns with discussed with client and she understands and accepts these. Progress Toward Goals/Plan:: Client had been making progress towards treatment goals, however, client recently stopped her Asenapine due to fear of weight gain. Client acknowledges that stopping this medication could result in bryan, worsening mood symptoms, sleep issues, and suicidal ideations. Client stated she wants to focus more on a holistic approach to manage her bipolar symptoms. Client agreeable to reduce caffeine intake, use calming coping skills, and maintain a sleep routine. Will continue IOP tx to monitor mood and prevent decompensation. Time Stopped:: 11:20
--- NOTE | 2021-05-21 09:00 | BH.SGPN.GN ---
Behaviors/Verbalizations/Mental Status: []Pt eye contact fair, neatly dressed, motor activity appropriate, speech normal rate and tone, mood anxious, constricted affect, thoughts linear and intact, no evidence of delusions or hallucinations. Reviewed client?s symptom tracker, pt indicates a 2/5, with 5 being severe for suicidal ideation and a 1/5 suicidal intention. This is pt's baseline. Pt does not seem to be at imminent risk to harm self or others. future focused. Client Response/Progress/Benefit: Pt responded well to session AEB pt listening attentively to others and sharing thoughts and feelings. Pt continues to report moderate depressed and agitation symptoms. Continues to report mild anxious symptoms. Pt reports she purchased supplements yesterday because she is going to try a holistic approach to managing her mental health. Pt states she is over taking medications because can't deal with the side effects. Pt admits she has hx of not following through with things she starts to do. Pt identified feeling worried she won't stick with the holistic approach. Pt unable to see the potential consequences of getting off her mood stabilizer. Pt to continue IOP to improve mood stability, increase consistent use of healthy coping and prevent decompensation. Narrative Note: []
--- NOTE | 2021-05-21 10:15 | BH.SGPN.GN ---
Behaviors/Verbalizations/Mental Status: []Client alert and oriented, casually dressed and groomed. Eye contact good. Motor activity appropriate. Speech within normal limits. Affect constricted, mood dysthymic. Thoughts linear, logical, no signs of hallucinations or delusions. Client Response/Progress/Benefit: []Pt was an engaged though primarily passive participant, declined to provide input during discussion though nodding throughout, taking notes, and was attentive during psychoeducation. Attentive during short activity about automatic thoughts, indicated relating to how automatic thoughts can influence beliefs, self-talk, and relationships with others. Group was primarily educational; therapist introduced and gave examples of the 10 cognitive distortions. Benefited from education and increased awareness of cognitive distortions and role that they play in negative thoughts and emotions. Pt reported connecting with the following distortions: all or nothing thinking, jumping to conclusions, mental filter, disqualifying the positives, and personalization. Shared that distortions have kept her from believing treatment will work in the past and resulted in assumptions which negatively impacted ability to trust others in the past. Will continue IOP tx to prevent decompensation, increase mood stability, and continue to promote healthy change behaviors. Narrative Note: []
--- NOTE | 2021-05-21 11:05 | BH.SGPN.GN ---
Addendum entered and electronically signed by Violeta Cottrell 05/28/21 13:40: error in date. correct date is 05/28/21 Original Note: Behaviors/Verbalizations/Mental Status: []Client alert and oriented, neatly dressed and groomed. Eye contact good. Motor activity appropriate. Speech within normal limits. Affect constricted, mood irritable. Thoughts linear, logical, no signs of hallucinations or delusions. Client Response/Progress/Benefit: []Client responded well to session, actively listening and providing examples. Group discussed the different categories of coping skills which included distraction, emotional release, grounding, self-love, and thought challenging. Client participated in creating a coping skills ?menu? from the five categories of coping skills. Client's coping skill menu included: spending time with kids, journaling, yoga, praying, and asking herself if her negative thoughts are ?100% true 100% of the time.? Progress noted in client?s reduced DSM-5 scores since admission, however, client continues to decline medication and is reporting worsening sleep. Appeared to benefit from increasing repertoire of healthy coping skills. Will continue tx to monitor mood and sleep, prevent decompensation, and increase use of healthy coping skills Narrative Note: []
--- NOTE | 2021-05-22 09:00 | BH.SGPN.GN ---
Behaviors/Verbalizations/Mental Status: [] Eye contact is good. Motor activity is appropriate. Appearance is neat. Speech is Appropriate. Mood is Depressed/irritable. Affect is flat. Thoughts are linear and logical. No evidence of psychosis. Reviewed daily check in sheet and pt reports 2/5 for suicidal thoughts and 1/5 for risk which is pt's baseline. Client Response/Progress/Benefit: [] Pt only participated when prompted. Attentive during group discussion on positive psychology however did not provide thoughts. Emotion for today is troubled but staying in the present. Symptom tracker notes 3/5 for depression and agitation. Mental health wins reported to be cleaning the house which she reports is significant for her. Reports feeling more motivated to make the best decisions for herself and her children. She attended her chldren's meet and great with their teachers yesterday. Also has begun a parenting class at [facility]. I want to be more present in their lives Also reports desire to learn better skills to parent her children noting she learned not so great things from her parents while she was growing up. Overall progress noted per pt report. These is concern for patient as she did stop all her medications against psychiatrist's recommendation. Unclear if increased motivation is hypomania. Will continue in IOP to monitor mood, encourage medication, increase healthy coping skills, and to prevent decompensation. Narrative Note: []
--- NOTE | 2021-05-22 10:03 | BH.SGPN.GN ---
Behaviors/Verbalizations/Mental Status: []Client alert and oriented, neatly dressed and groomed. Eye contact good. Motor activity appropriate. Speech within normal limits. Affect flat, mood euthymic. Thoughts linear, logical, no signs of hallucinations or delusions. Client Response/Progress/Benefit: []Client engaged in session AEB taking notes and contributing to discussion. Client shared connecting with the importance of setting boundaries, however, client stated she struggles with boundaries. Client stated ?I don?t set boundaries I just cut people off? which leads to loneliness and isolation. Client assisted group with identifying benefits of setting boundaries such as improved relationships, reduced anxiety, and increased self-esteem. Listened during psychoeducation on different types of boundaries. Client seemed to benefit from increased awareness of how boundaries impact mental health and the different types of boundaries there are. Progress noted in client?s report of reaching out to supports outside of IOP. Will continue IOP tx to prevent decompensation, monitor mood, and improve functioning. Narrative Note: []
--- NOTE | 2021-05-22 11:12 | BH.SGPN.GN ---
Behaviors/Verbalizations/Mental Status: []Client alert and oriented, neat and casually dressed and appropriately groomed. Eye contact good. Motor activity appropriate. Speech within normal limits. Affect congruent, mood dysthymic, anxious. Thoughts linear and intact. no signs of delusions or hallucinations. Client Response/Progress/Benefit: [] Client responded well to session AEB listening attentively to peers and providing input throughout. Client completed the boundary self-assessment activity and processed within their small group. Client was attentive and contributed during psychoeducation on the different boundary styles. Client stated struggling with having really rigid boundaries which has negatively impacted relationships and made it hard for her to trust others or open up in the past. Participated in group discussion brainstorming various strategies for improving healthy personal boundaries. Client identified wanting to improve her willingness to be vulnerable with her healthy supports. Shared this may help her to be more receptive of help and willing to trust others in the long run. Will continue IOP tx to continue to maintain safety, improve mood stability, and prevent decompensation. Narrative Note: []
--- NOTE | 2021-05-26 11:12 | BH.COMM ---
Communication Note - Communication with Client Communication Note: Client no called/no showed for IOP today. Therapist spoke with client's sister and her sister reports client is okay. Sister shared client's children started school today and there was an issue with the school bus which prevented client from attending. Sister reports she saw client over the weekend and client appeared to be doing well. Client denied any suicidal or homicidal ideations, plan, or intent last time she attended IOP. Client is scheduled to attend IOP again on 05/28/21.
--- NOTE | 2021-05-28 10:05 | BH.SGPN.GN ---
Behaviors/Verbalizations/Mental Status: []Client alert and oriented, neatly dressed and groomed. Eye contact good. Motor activity appropriate. Speech within normal limits. Affect constricted, mood irritable. Thoughts linear, logical, no signs of hallucinations or delusions. Client Response/Progress/Benefit: [] Pt was an active participant in group discussion and activity. Attentive during discussion of what coping skills are and how people learn coping skills. Pt worked with peers to identify why people use unhealthy coping skills such as it is easier, habit, and short-term relief. Worked within small group to complete challenge activity requiring use of several coping skills. Did well to provide and receive supportive feedback. Group processed the activity and connected it back to having a strong base of internal and external healthy coping skills. Benefited from increased awareness of coping skills, benefits in using healthy coping skills, and common coping skill barriers. Will continue in IOP to improve mood stability, improve daily functioning, and reduce irritability. Narrative Note: []
--- NOTE | 2021-05-29 09:00 | BH.SGPN.GN ---
Behaviors/Verbalizations/Mental Status: [] Eye contact is good. Motor activity is appropriate. Appearance is casual. Speech is Appropriate. Mood is depressed. Affect is flat. Thoughts are linear and logical. No evidence of psychosis. Reviewed daily check in sheet and pt reports 1/5 for suicidal thoughts and 1/5 for intent which are baseline for pt. Client Response/Progress/Benefit: [] Pt spoke only when prompted. Attentive however did not provided any feedback. Emotion for today is over it. Daily symptom tracker notes 3/5 for depression and anger. Mental health wins include utilizing opposite action skills. Stressors include an initial visit with her editor managing director which she reports was not beneficial. Pt reports that the GENERAL FARM HAND had made some suggestions regarding medications however pt is not going to follow-through with these recommendations. Pt felt the [employer] was too young and believes that she knows more about medications than her. She shared some other psychosocial stressors regarding her children and thier return back to school. SHe struggles to identify any skills to utilize for anger other than opposite action and exercise. No progress noted. Benefited from group support and feedback. Will continue in IOP to maintain safety, increase healthy coping, and to stabilize mood. Narrative Note: []
--- NOTE | 2021-05-29 10:10 | BH.SGPN.GN ---
Behaviors/Verbalizations/Mental Status: []Client alert and oriented, neatly dressed and groomed. Eye contact good. Motor activity appropriate. Speech within normal limits. Affect constricted, mood stressed. Thoughts linear, logical, no signs of hallucinations or delusions. Client Response/Progress/Benefit: []Client responded well to session, attentive and participating in discussion. Participated in discussion of things that can keep people feeling trapped or stuck in life including; avoidance, self-doubt, unhealthy coping skills, and fear of failure. Group discussed the connection between thoughts, emotions, and behaviors as well as how negative thinking can keep a person stuck. Client attentive during psychoeducation on maintenance cycles. Client able to identify negative thoughts that have kept client stuck which included ?I?m never going to get better, why am I like this, and I?m a failure.? Appeared to benefit from gaining awareness of how negative thoughts reinforce mental health symptoms and keep people stuck. Will continue IOP tx to monitor mood symptoms, prevent decompensation, and increase the use of healthy coping skills. Narrative Note: []
--- NOTE | 2021-05-29 13:15 | BH.MDN ---
Multi-Disciplinary Note - Note 45-min Individual Time Started:: 11:30 Date: 05/29/21 Purpose of session/treatment goals addressed:: To address current stressors and explore recent BPD diagnosis. Another goal was to provide psychoeducation on BPD and discuss plan of care moving forward. Eye Contact:: Good Motor Activity:: Appropriate Appearance:: Neat Speech:: Appropriate Mood:: Euthymic, Anxious Affect:: Congruent Thoughts:: Linear, Logical, No evidence of hallucinations/delusions noted Staff Interventions:: motivational interviewing, psychoeducation on: - Borderline personality disorder, strengths perspective, reviewed DSM-5, other - Administered self-assessment. Client Response:: Client responded well to session, open to meeting with therapist. Client met with her new regional vice president surgical sales yesterday and client stated she was diagnosed with borderline personality disorder. Client shared I truly feel like I have that and not bipolar disorder. Discussed the differences between bipolar disorder and BPD. Client also completed the self-assessment from the borderline personality disorder workbook. Client feels she has seven out of the nine criteria for BPD including: frantic efforts to avoid real or imagined abandonment, unstable and intense interpersonal relationships, impulsivity in at least two areas of life, recurrent suicidal behavior, gestures, or threats, affective instability, chronic feelings of emptiness, and inappropriate and difficulty managing anger. Client feels that a BPD diagnosis will actually be helpful as client does not respond well to medication. Client also has plans to participate in a DBT IOP after discharging from [facility] IOP. Discussed the importance of self-awareness and application of coping skills to manage BPD symptoms. Therapist also helped client gain insight that client's symptoms of bipolar disorder should not be overlooked. Risks/Concerns:: Client denies any suicidal ideations, plan, or intent as of 05/29/21. Client denies any homicidal ideations. Client recently prescribed Abilify by her outpatient regional vice president surgical sales and per client's report, she does not plan to take it. Progress Toward Goals/Plan:: Client's DSM-5 scores for depression, SI, and irritability have all decreased since admission. Depression by 25%, SI by 67%, and irritability by 25%. Client's scores for bryan have not changed since admission. Client has been off her medication for approximately a week and reports minimal change to her mood. Client does report her sleep is poor since being off of Saphris. Client wants to focus on treating her BPD symptoms moving forward. Will continue IOP tx to prevent decompensation, improve emotional regulation skills, and increase use of healthy coping skills. Time Stopped:: 12:10
--- NOTE | 2021-06-01 09:00 | BH.SGPN.GN ---
Behaviors/Verbalizations/Mental Status: [] Eye contact is good. Motor activity is appropriate. Appearance is neat. Speech is Appropriate. Mood is euthymic. Affect is full. Thoughts are linear and logical. No evidence of psychosis. Reviewed daily check in sheet and pt reports 1/5 for suicidal thoughts and 1/5 for intent. Client Response/Progress/Benefit: [] Pt spoke when promoted. Attentive. Daily symptom tracker notes 4/5 for depression and agitation. Mental health win reported as spending time with her daughter for her b-day. She states that they went to [employer] which was fun. Stress related to her son beginning to struggle at school. States I feel depression coming on. She describes this as being out of her control. Group suggested some possible skills to utilize however pt appeared dismissive. Limited progress noted. Benefited from group support and encouragement. Will continue in IOP to maintain safety, encourage use of skills, and to prevent decompensation. Narrative Note: []
--- NOTE | 2021-06-01 10:10 | BH.SGPN.GN ---
Behaviors/Verbalizations/Mental Status: []Client alert and oriented, casually dressed and groomed. Eye contact poor. Motor activity appropriate. Speech within normal limits. Affect flat, mood depressed. Thoughts linear, logical, no signs of hallucinations or delusions. Client Response/Progress/Benefit: []Client passive participant AEB client providing no input throughout discussion, however did appear to listen attentively to others. Listened as the group brainstormed the positive and negative aspects of stress on physical and mental health. Group did well to identify the benefits of stress as well as the impact of distress on performance and mental health. Client chose not to share current stressors. Client seemed to benefit from increased self-awareness of current stressors and impact stress has on mental health. Recommended to continue IOP tx to improve emotion regulation, promote use of healthy coping skills and prevent decompensation.
--- NOTE | 2021-06-01 11:15 | BH.SGPN.GN ---
Behaviors/Verbalizations/Mental Status: []Client alert and oriented, neat and casually dressed and groomed. Eye contact fair to good. Motor activity appropriate. Speech within normal limits. Affect constricted, mood anxious and dysthymic. Thoughts linear, logical, no signs of hallucinations or delusions. Client Response/Progress/Benefit: []Client engaged in session AEB listening attentively to others and taking notes throughout discussions. Client was an active participant in challenge activity and did well to use healthy communication and emotion regulation skills in the moment to help group with problem solving while in high stress situations. Took on a more active role as a result. Client remained attentive during discussion about the 4 A's of managing stress and nodded in connection with the various benefits of each. Shared wanting to work on the skill of altering to better cope with how her son is behaving in the school environment. Client stated this will be helpful to decrease stress because she would feel more capable of addressing stressor rather than continuing to be stressed by the reports of him misbehaving. Client seemed to benefit from increased awareness of the impact of stress on mental health and increasing repertoire of stress management strategies. Will continue IOP tx to prevent decompensation, continue to promote thought challenging and mood stability, as well as consistent application of healthy coping skills. Narrative Note: []
--- NOTE | 2021-06-01 15:04 | BH.TPR ---
Treatment Plan Review Date of Admission:: 05/01/21 Date of Treatment Plan Review:: 05/29/21 Admitting Diagnoses:: Bipolar 1 disorder, most recent episode mixed, severe without psychosis F 31.63; History of PTSD; History of alcohol use disorder (sober since February 2021); Cluster B traits: Strong Current Diagnoses:: Bipolar 1 disorder, most recent episode mixed, severe without psychosis F 31.63; Borderline Personality Disorder; History of PTSD; History of alcohol use disorder (sober since February 2021); Patient's Response to Treatment:: Client?s attendance is mostly consistent, but client has had two no shows since starting IOP. Client appears to take notes during group sessions and she contributes during process group, but client is quiet during the other two groups. Client is inconsistent with homework when the homework is a worksheet, but client has been using opposite action. Client is not currently taking medication. Client does well with calling and scheduling appointments as well as advocating for herself. Status of Current Problems and Symptoms: Client's DSM-5 symptoms have decreased since admission, but client continues to report issues with sleep, limited functioning, and irritability. Client reports her new resident surgeon diagnosed her with borderline personality disorder and client feels this is a more appropriate diagnosis. Client identifies with the following symptoms: frantic efforts to avoid real or imagined abandonment, unstable and intense interpersonal relationships, impulsivity in at least two areas of life, recurrent suicidal behavior, gestures, or threats, affective instability, chronic feelings of emptiness, and inappropriate and difficulty managing anger. Client's children recently started school which was a stressor earlier this week. Client also continues to report financial stress and stress that comes with being a single parent. Client has been off medication for two weeks, but does not report any symptoms of bryan. Problem #1 Problem Name:: Mood instability, depression, and suicidal ideations Status of Goals:: Objective 1- complete with ongoing work encouraged. Client?s DSM-5 scores for suicidal ideation have decreased by 67% since admission, depression by 25%, and her symptoms of bryan remain the same since admission. Client has learned about opposite action, thought challenging, and dialectical thinking. Objective 2- partially complete. Client can identify distorted thought patterns and does well during session to challenge these thoughts. However, client struggles to challenge these thoughts outside of IOP. Team Recommendations:: Treatment team recommends client increase her verbal contributions during group session. Also encourages client to continue using opposite action, reaching out to supports, exercising, and attending [employer]. Problem #2 Problem Name:: Irritability and Impulsivity Status of Goals:: Objective 1- complete with ongoing work encouraged. Client?s DSM-5 scores for irritability decreased by 25%. Client has gained awareness of healthy coping skills such as deep breathing, self-talk, R.E.S.T, and self-care. Objective 2- not complete. Client is not taking medication currently, but client reports she is still ?open-minded? to medication. Client has been encouraged several times by IOP staff and client?s outpatient providers to take medication, but client declines. Team Recommendations:: Treatment team encourages client to develop a structured routine to help client and her children better regulate emotions. Client has also been encouraged to consider medication to manage mood symptoms. Additionally, client plans to begin parenting classes and would like to start a DBT IOP following IOP discharge.
--- NOTE | 2021-06-03 09:05 | BH.SGPN.GN ---
Behaviors/Verbalizations/Mental Status: [] Pt eye contact good, neat dressed, motor activity appropriate, speech normal rate and tone, mood euthymic, congruent affect, thoughts linear and intact, no evidence of delusions or hallucinations. Reviewed client?s symptom tracker pt indicated a 1/5 for suicidal ideation, with 5 being severe, and a 1/5 for suicidal intention. This is below's pt's baseline for suicidal ideation and intention. Does not appear to be at imminent risk to harm self or others. Client Response/Progress/Benefit: []Pt responded well to session AEB by listening to others and sharing thoughts and feelings. Pt stated she is stressed because she is noticing herself having no energy, not motivated and easily annoyed. Pt reported she is recognizing she is going into a depressed episode. Pt stated the symptoms started last week but she was in denial. Pt reported additional stressor as getting phone calls from the school everyday about her son's behavior. Pt stated she doesn't know what to do to help him be better in school. Pt identified mental health positive as continuing to use opposite action to make herself get things done everyday. Progress noted with pt having awareness that she is going into a depressive episode. Pt progress could be hindered by pt's belief she needs to do this on my own and stopping all her medications a couple weeks ago. Pt to continue IOP to stabilize moods, continue use of healthy coping and prevent decompensation. Narrative Note: []
--- NOTE | 2021-06-03 10:16 | BH.SGPN.GN ---
Behaviors/Verbalizations/Mental Status: []Client alert and oriented, neat and casually dressed and groomed. Eye contact fair to good. Motor activity appropriate. Speech within normal limits. Affect constricted, mood depressed. Thoughts linear, logical, no signs of hallucinations or delusions. Client Response/Progress/Benefit: []Pt was an active participant AEB taking notes and remaining attentive throughout group discussion, as well as completed anger worksheet. Group worked together to define anger and discussed the ways anger can impact one internally and externally. Pt reported that an individual?s anger expression can be a learned behavior and current reactions be influenced by how they have reacted in past experiences. Pt completed the iceberg exercise and identified emotions that tend to ?live under the surface? of her own anger include: disappointment, loss of control, feeling attacked, loneliness/isolation, and hopelessness. Pt also gained awareness of her typical responses to anger which included: shutting down, yelling, or starting arguments. Benefited from group by increasing understanding of the impact of anger on mental health. Recommended continued tx to continue to improve emotion regulation skills, prevent decompensation, and continue to work on improving distress tolerance skills. Narrative Note: []
--- NOTE | 2021-06-03 11:20 | BH.SGPN.GN ---
Behaviors/Verbalizations/Mental Status: []Client alert and oriented, neatly dressed and groomed. Eye contact fair. Motor activity appropriate. Speech within normal limits. Affect constricted, mood dysthymic and irritable. Thoughts linear, logical, no signs of hallucinations or delusions. Client Response/Progress/Benefit: []Pt was engaged throughout AEB participating in discussion and taking notes. Pt appeared irritable during the activity, but did well to use healthy coping skills in the moment as she responded well to feedback. Contributed as group brainstormed healthy coping skills for better managing anger which included: deep breathing, counting, exercise, DDD, and taking walks. Pt also gained awareness of costs of unmanaged anger. Pt appeared to benefit from identifying different techniques to manage anger as well as gaining awareness of the costs of anger. Pt has been working on walking away and taking breaks when angry. Pt will continue to practice mindfulness skills to manage irritability. Will continue IOP tx to increase emotional regulation skills, prevent decompensation, and increase self-awareness. Narrative Note: []
--- NOTE | 2021-06-03 14:58 | BH.MDN ---
Multi-Disciplinary Note - Note 30-min Individual Time Started:: 12:10 Date: 06/03/21 Purpose of session/treatment goals addressed:: To address goal #2 of client's tx plan and to review progress/barriers. Another goal was to discuss aftercare plan. Eye Contact:: Good Motor Activity:: Appropriate Appearance:: Neat Speech:: Soft Mood:: Dysthymic Affect:: Constricted Thoughts:: Linear, Logical, No evidence of hallucinations/delusions noted Staff Interventions:: thought challenging, motivational interviewing, psychoeducation on: - Bipolar disorder and BPD, discharge planning, reviewed DSM-5, taught coping skills - Willingness vs. Willfulness Client Response:: Client responded well to session, open to meeting with therapist. Client stated she did not want to come to IOP today as she has been experiencing lack of motivation and increased irritability. Client stated she used opposite action this morning and has been trying to sit with her emotions during group rather than leaving and isolating. Client self-reports that she is managing her irritability better at home as client has not lashed out at her children. Client stated she has been telling herself I know these skills I need to use them. Client receptive to learning about willingness vs. willfulness. Client and therapist discussed client's symptoms of BPD and Bipolar disorder. Client reflected since last session and she feels that she has more symptoms of bipolar disorder than she wanted to admit. Client responded well to motivational interviewing and discussion of medication. Client connected with confirmation bias and how this could prevent client from trying medication in the future. Client willing to practice DBT skills for homework. Risks/Concerns:: Client's daily symptom tracker for suicidal ideations is 1/5 with 5 being severe. Client reports this is below her baseline and continues to deny any active suicidal ideations, plan, or intent. No HI. Future oriented. Progress Toward Goals/Plan:: Client's DSM-5 scores have decreased since admission and her suicidal ideations have significantly decreased. Client currently reporting increased depressive symptoms such as lack of motivation and energy, however, client reports she is still able to function at home. Client is still off medication, but is considering starting Abilify again. Pt plans to continue IOP tx for two more weeks to strengthen coping skills and monitor mood and then will start a DBT IOP and parenting classes. Time Stopped:: 12:40
--- NOTE | 2021-06-05 13:39 | BH.DS_ITS ---
Discharge Summary - Demographics Date of Admission:: 05/01/21 Discharge Date: 06/05/21 Presenting Problems at Admission:: Client is a 31 year-old female with a history of bipolar disorder, cluster B traits, and PTSD. Client was self-referred to [facility] due to erratic moods over the past several months. At admission, client endorsed a depressed mood, but client shares her moods change many times throughout the day. Client's last manic episode was last year, during which client was being hypersexual, drinking, and impulsively spending money. At admission, client endorsed lack of energy, increased irritability, insomnia, hopelessness, and worthlessness. Client reported chronic suicidal ideations, but denied any active SI. Client's symptoms were interfering with her functioning at home as well as her ability to form relationships and work. Client also feared that her symptoms were impacting her children. Discharge Diagnoses:: Bipolar 1 disorder, most recent episode mixed, severe without psychosis F 31.63; Borderline Personality Disorder; History of PTSD; History of alcohol use disorder (sober since February 2021 Reason for Discharge:: Client voluntarily discharges from [facility] due to car issues interfering with client's participation. Client feels getting treatment closer to home will be more beneficial at this time. Client has made some progress AEB her symptom reduction at review. Client plans to attend a DBT IOP in [place]. - Treatment Progress During Treatment & Response: Client?s attendance was mostly consistent, although client did have two no call no shows. Client appeared to take notes during group sessions and she contributed during process group, but client was quiet during the other two groups. Client was inconsistent with homework and self-reported a history of lack of follow through. Client did well with using opposite action and reaching out to supports. Client was not taking any medication for the last two weeks leading up to discharge. Client did well with calling and scheduling appointments as well as advocating for herself. Issues Still to be Addressed:: Client can continue to benefit from ongoing counseling and psychiatry to monitor her mood and provide support. Client has been encouraged by multiple providers to take medication in tandem with counseling to best treat client's symptoms. Due to client not being on any medication and losing the structure of IOP, there is a concern for decompensation. Client reports plan to attend a DBT IOP and this has the potential to be very beneficial for client. Client is also encouraged to get parenting classes as well as in-home family counseling. Discharge Recommendations/Instructions:: Client reports plan to participate in DBT IOP at [facility]. Client is waiting to hear back on a start date. Client is connected to psychiatry, case management, and therapy at [facility] in [place]. Client has an appointment on 06/10/21 with her psychologist personnel. Lastly, client wants to start parenting classes and plans to get services through the [facility] program. Discharge Handout: Complete Discharge Handout with client on aftercare options and continuity of care.
== END 2021-06-05 16:43 | disposition home or self-care (01) ==
LOC: BHIOP 07:50
PROVIDERS: Referring Provider Psychiatry & Neurology Psychiatry; Visit Provider Psychiatry & Neurology Psychiatry
DX: F31.63 Bipolar disorder, current episode mixed, severe, without psychotic features (principal); F43.10 Post-traumatic stress disorder, unspecified; Z72.89 Other problems related to lifestyle
CPT/HCPCS: 36415; 80069; 80178; 82306; 84443; 99214; H2012; H2020; S9480; T1002; 90832; 90834; 90837

== ENCOUNTER → 2021-05-11 08:34 | Outpatient (CLI) | payer MEDICAID, SELFPAY ==
[2021-05-11 10:05] LABS: Vitamin D,25 Hydroxy 43.5 ng/mL
[2021-05-11 10:35] LABS: Albumin, Serum 3.9 g/dL (3.2-5.0); BUN 7 mg/dL (7-18); BUN/Creat Ratio 7.6 RATIO (10-20); Calcium,Total 9.3 mg/dL (8.5-10.1); Chloride 108 mmol/L (98-107); Creatinine, Serum 0.92 mg/dL (0.55-1.02); EST Glomerular Filtration Rate 74 mL/min (>60); Est Glom Filt Rate - Afr Amer 90 mL/min (>60); Glucose 87 mg/dL (74-106); Phosphorus 4.4 mg/dL (2.5-4.9); Potassium 3.4 mmol/L (3.5-5.1); Sodium Level 141 mmol/L (136-145); Thyroid Stim Hormone (TSH) 2.09 uIU/mL (0.358-3.74)
== END ==
PROVIDERS: Referring Provider Psychiatry & Neurology Psychiatry; Visit Provider Psychiatry & Neurology Psychiatry
DX: Z79.899 Other long term (current) drug therapy (principal)
CPT/HCPCS: 36415; 80069; 80178; 82306; 84443

== ENCOUNTER → 2021-06-03 12:37 | Outpatient (CLI) | payer MEDICAID, SELFPAY ==
--- NOTE | 2021-06-03 12:57 | EKG12_ITS ---
Test Reason : ROUTINE Blood Pressure : / mmHG Vent. Rate : 061 BPM Atrial Rate : 061 BPM P-R Int : 150 ms QRS Dur : 080 ms QT Int : 392 ms P-R-T Axes : 060 069 078 degrees QTc Int : 394 ms Sinus rhythm with marked sinus arrhythmia Otherwise normal ECG Confirmed by LIANNA LAFLEUR, NEERAJ ([id number]), editor managing director CARLOS BUI ([id number]) on 06/04/2021 10:59:19 AM Referred By: JEAN Confirmed By:NEERAJ DSOUZA MD
[2021-06-03 13:23] LABS: Absolute Lymphocyte Count 1.96 X10^3/uL (0.83-4.51); Absolute Neutrophil Count 1.5 X10^3/uL (2.0-7.7); Basophil# 0.03 X10^3/uL; Basophil% 0.8 % (0-1); Eosinophil# 0.04 X10^3/uL; Eosinophils% 1.1 % (0-5); Hematocrit 40.4 % (37-47); Lymphocyte # 1.96 X10^3/ul (0.83-4.51); Lymphocyte % 51.7 % (19-41); Mean Corp Hgb Conc 32.2 g/dL (32-36); Mean Corpuscular Hgb 28.6 pg (27.0-32.0); Mean Platelet Vol. 8.7 fl (6.2-12.0); Monocyte# 0.28 X10^3/uL; Monocyte% 7.4 % (0-10); NRBC Flagged by Analyzer 0 % (0-5); Neutrophil # 1.48 X10^3/uL (2.7-7.7); Platelet Count 272 K/mm3 (150-450); RBC Distribution Width CV 12.5 % (11.6-14.6); RBC Distribution Width SD 40.6 fl (35.1-43.9); Red Blood Count 4.54 M/mm3 (4.2-5.4); White Blood Count 3.8 K/mm3 (4.4-11.0)
[2021-06-03 14:11] LABS: Vitamin B12 1205 pg/mL (211-911)
[2021-06-03 14:47] LABS: ALB/GLOB Ratio 0.9 RATIO (0.9-2.4); AST(SGOT) 21 U/L (15-37); Alanine Aminotransfer ALT/SGPT 24 U/L (13-56); Albumin, Serum 3.9 g/dL (3.2-5.0); Alkaline Phosphatase 118 U/L (45-117); Anion Gap 5 (5-15); BUN 10 mg/dL (7-18); BUN/Creat Ratio 12.2 RATIO (10-20); Bilirubin, Direct 0.09 mg/dL (0.00-0.30); Calcium,Total 8.7 mg/dL (8.5-10.1); Chloride 109 mmol/L (98-107); Creatinine, Serum 0.82 mg/dL (0.55-1.02); EST Glomerular Filtration Rate 85 mL/min (>60); Est Glom Filt Rate - Afr Amer 103 mL/min (>60); Free T3 3.1 pg/mL (2.18-3.98); Globulin 4.2 g/dL (2.2-4.2); Glucose 86 mg/dL (74-106); Potassium 3.4 mmol/L (3.5-5.1); Protein, Total 8.1 g/dL (6.4-8.2); Sodium Level 140 mmol/L (136-145); T3 Uptake 34 % (30-39); T4 Total, Thyroxin 7.8 ug/dL (4.8-13.9)
[2021-06-03 14:48] LABS: T7 / Free Thyroxin Index 2.7 (1.4-4.5); Thyroid Stim Hormone (TSH) 0.75 uIU/mL (0.358-3.74)
== END ==
DX: F31.81 Bipolar II disorder (principal)
CPT/HCPCS: 36415; 80053; 82248; 82607; 82746; 84436; 84443; 84479; 84481; 85025; 93005